=== PATIENT | male | born 1960 | race African-American/Black ===

== ENCOUNTER 2018-11-05 15:42 | Emergency (ER) | payer BC ==
[~2018-11-05] VITALS: Ht 180.3 cm; Wt 86.2 kg
[2018-11-05 16:05] VITALS: BP 210/100
[2018-11-05] MEDS ORDERED: ATENOLOL25 MG ORAL (16:18)
--- NOTE | 2018-11-05 16:18 | Emergency Room Report ---
History of Present Illness General Chief Complaint: Medication Refill Source: Patient Present Illness HPI 58-year-old male patient presents the ER requesting refill of blood pressure medication. States that he is taking atenolol 75 mg, states he has been taking for the past 4 years. States that he no longer wants to be seen by [facility] and when he asked them for a refill they would not provide him with a refill. States Last took medication yesterday. States history of high blood pressure since he was 16. Denies fever, chest pain, shortness of breath, headache, abdominal pain, leg swelling, hematuria. Denies acute complaints currently. Patient denies history of heart attack or CHF. Denies acute complaints the ER. Allergies: Coded Allergies: LISINOPRIL (Verified Allergy, Unknown, 11/05/18) Patient History Past Medical History: see triage record Reviewed Nursing Documentation: PMH: Agreed; PSxH: Agreed Nursing Documentation-PMH Past Medical History: No History, Except For Hx Hypertension: Yes Review of Systems All Other Systems: negative except mentioned in HPI Physical Exam Vital Signs Date Time Temp Pulse Resp B/P (MAP) Pulse Ox O2 Delivery O2 Flow Rate FiO2 11/05/18 15:56 98.4 60 14 215/106 99 Room Air Sp02 EP Interpretation: reviewed, normal General Appearance: well appearing, no apparent distress, alert, GCS 15, non- toxic Head: normocephalic, atraumatic Eyes: bilateral eye normal inspection, bilateral eye PERRL ENT: hearing grossly normal, normal pharynx, no angioedema, normal voice, uvula midline, moist mucus membranes Neck: full range of motion Respiratory: lungs clear, normal breath sounds, no rhonchi, no respiratory distress, no accessory muscle use, no wheezing, speaking full sentences Cardiovascular #1: regular rate, rhythm, no edema Cardiovascular #2: 2+ radial (R), 2+ radial (L) Gastrointestinal: non tender, soft, no mass, non-distended, no guarding, no rebound Musculoskeletal: back normal, digits/nails normal, gait/station normal, normal range of motion, non-tender, no calf tenderness, Kev's Sign negative Psychiatric: mood/affect normal Skin: no rash Medical Decision Making PA Attestation Dr. Son is my supervising Physician whom patient management has been discussed with. Diagnostic Impression: Primary Impression: Encounter for medication refill Additional Impression: Asymptomatic hypertension ER Course Pt. presents to the ED requesting prescription refill. Multiple differentials were considered. Vital signs: are except for elevated blood pressure WNL , pt. is afebrile. We will recheck blood pressure following administering medication.. Denies chest pain, shortness of breath, vision changes. Follow with primary care provider discuss further treatment and referral. Advised on low-sodium diet, advised on diet and exercise. ORDERS: PE benign, lungs clear to auscultation, no wheezes rhonchi rales, no abdominal tenderness palpation, no leg swelling. Patient has elevated asymptomatic high blood pressure currently. Will provide patient with dose of atenolol here in the ER and prescription to go home with. Informed patient that ER does not normally provide prescriptions, needs to come from primary care provider. If patient no longer wishes to be seen by [facility], needs to contact his insurance and establish care with a new primary care provider. Will provide patient with contact information for free and low cost healthcare clinics. ER precautions given. Advised patient on close monitoring and treatment of blood pressure. DISCHARGE: Rx provided for Atenolol 75 mg daily At this time pt is stable for d/c to home. Patient is resting comfortably, in no acute distress, nontoxic appearing, talking without difficulty. Patient to take medications as instructed Will provide with patient care instructions and any necessary prescriptions. Care plan and follow-up instructions provided. Patient instructed to follow-up with primary care provider in 3 - 5 days. Patient questions asked and answered. Patient reports understanding and agreement to treatment plan. ER precautions given. Patient instructed to return to ER immediately for any new or worsening of symptoms including but not limited to increasing SOB, persistent fever. - Please note that this Emergency Department Report was dictated using [employer] technology software, occasionally this can lead to erroneous entry secondary to interpretation by the dictation equipment. Last Vital Signs Date Time Temp Pulse Resp B/P (MAP) Pulse Ox O2 Delivery O2 Flow Rate FiO2 11/05/18 15:56 98.4 60 14 215/106 99 Room Air Disposition: HOME, SELF-CARE Condition: Stable Scripts Atenolol* (TENORMIN*) 25 Mg Tablet 75 MG ORAL DAILY for 30 Days, TAB Prov: Sergey Posada 11/05/18 Patient Instructions: Hypertension, [id number], Medicine Refill at the Emergency Department Additional Instructions: Followup with primary care provider in 3 -5 days. Call insurance to establish care. Advised on DASH diet, diet and exercise, low-sodium diet. Take medications as directed. Patient questions asked and answered. ER precautions given, patient instructed to return to ER immediately for any new or worsening of symptoms. Sergey Posada Nov 05, 2018 16:18
[2018-11-05 16:50] VITALS: BP 213/103
== END 2018-11-05 16:54 | disposition home or self-care (01) ==
LOC: EMR 16:12
DX: Z76.0 Encounter for issue of repeat prescription (principal); I10 Essential (primary) hypertension; Z88.8 Allergy status to other drugs, medicaments and biological substances
CPT/HCPCS: 99282